=== PATIENT | female | born 2000 | race Caucasian/White ===

== ENCOUNTER 2020-06-29 21:28 | Outpatient (CLI) | payer OTHER | END 2020-06-29 23:32 | disposition home or self-care (01) | LOC: GENOP 21:28 | DX: O16.3 Unspecified maternal hypertension, third trimester (principal); O26.893 Other specified pregnancy related conditions, third trimester; R51.9 Headache, unspecified; Z3A.31 31 weeks gestation of pregnancy | CPT/HCPCS: G0463 ==

== ENCOUNTER 2020-10-28 19:23 | Emergency (ER) | payer OTHER ==
[2020-10-28 22:23] LABS: HEMOGLOBIN 12.6 gm/dl (12.3-15.3); RED BLOOD COUNT 4.86 M/UL (4.00-5.10); WHITE BLOOD COUNT 9.8 K/UL (4.5-11.0)
[2020-10-28 22:41] LABS: BUN/CREATININE RATIO 13 (0-10)
== END 2020-10-29 02:02 | disposition home or self-care (01) ==
LOC: ER1 19:23
PROVIDERS: Physician Assistant
DX: J02.9 Acute pharyngitis, unspecified (principal); R10.31 Right lower quadrant pain; R10.11 Right upper quadrant pain; Z20.822 Contact with and (suspected) exposure to COVID-19; F17.290 Nicotine dependence, other tobacco product, uncomplicated; Z88.0 Allergy status to penicillin
CPT/HCPCS: 71045; 72125; 80053; 84703; 85025; 99284; Q9967; U0003